=== PATIENT | female | born 1990 | race Caucasian/White ===

== ENCOUNTER → 2021-10-13 | Outpatient (CLI) | payer BC, OTHER ==
[~2021-10-13] MED LIST: AMPH1TAB2; LEXA1TAB2; MINO100C4
== END ==
LOC: M LABSMTC 11:12
PROVIDERS: ATTEND Anesthesiology
DX: Z01.818 Encounter for other preprocedural examination (principal); Z11.52 Encounter for screening for COVID-19

== ENCOUNTER 2021-10-18 08:37 | Observation (INO) | payer BC, OTHER ==
[2021-10-18] VITALS (7 sets, daily range): BP systolic 93–116; BP diastolic 60–77
[~2021-10-18] VITALS: Ht 170.2 cm; Wt 63.5 kg
[~2021-10-18 08:37] MED LIST changes: +LIDOCAINE 1% MDV 20ML VIAL SQ PRN; +LR 1,000 ML IV ONE; +ceFAZolin SOD 2 GM in IV 1 EA IV ONE
[2021-10-18] MEDS ORDERED: ROCURONIUM BROMIDE 50 MG/5 ML VIAL As Ordered ONE ×2 (09:35→12:44)
[2021-10-18] MEDS ORDERED: dexameTHASONE 4 MG/ML 1ML VIAL (J1100 PER 1MG) As Ordered ONE (09:35)
[2021-10-18] MEDS ORDERED: ONDANSETRON 4MG/2ML VIAL As Ordered ONE (09:35)
[2021-10-18] MEDS ORDERED: fentaNYL 250 MCG/5 ML INJECTION As Ordered ONE (09:35)
[2021-10-18] MEDS ORDERED: LIDOCAINE 2% 100MG/5ML SDV (FOR ANES.) As Ordered ONE (09:35)
[2021-10-18] MEDS ORDERED: propofoL 200 MG/20 ML VIAL As Ordered ONE (09:35)
[2021-10-18] MEDS ORDERED: MIDAZOLAM INJ 2MG/2ML VIAL (J2250 PER 1MG) As Ordered ONE (09:36)
[2021-10-18] MEDS ORDERED: SCOPOLAMINE 1MG TRANSDERMAL PATCH TOP ONE (10:25)
[2021-10-18] MEDS ORDERED: GENTAMICIN SULF 80MG/2ML VIAL As Ordered ONE (11:41)
[2021-10-18] MEDS ORDERED: BUPIVACAINE LIPOSOME/PF 1.3% 20ML VIAL (13.3MG/ML)(EXPAREL) As Ordered ONE (11:41)
[2021-10-18] MEDS ORDERED: PHENYLephrine 500MCG 5ML (100MCG/ML) SYRINGE As Ordered ONE (12:12)
[2021-10-18] MEDS ORDERED: ePHEDrine SULFATE 25 MG/5 ML(5MG/ML) SYRINGE As Ordered ONE (12:28)
[2021-10-18] MEDS ORDERED: ACETAMINOPHEN 1000MG 100ML IV BTL (OFIRMEV) (J0131 PER 10MG) As Ordered ONE (13:24)
[2021-10-18] MEDS ORDERED: HYDROmorphone HCL 2MG/ML 1ML VIAL As Ordered ONE (13:29)
[2021-10-18] MEDS ORDERED: SUGAMMADEX SODIUM 500 MG/5 ML VIAL (BRIDION) As Ordered ONE (13:29)
[2021-10-18] MEDS ORDERED: METOCLOPRAMIDE INJ 10MG/2ML VIAL (J2765 PER 1) As Ordered ONE (14:11)
[2021-10-18] MEDS ORDERED: ONDANSETRON 4MG/2ML VIAL IV PRN ×2 (15:30→15:45)
[2021-10-18] MEDS ORDERED: LR 1,000 ML IV SCH ×2 (15:30→15:45)
[2021-10-18] MEDS ORDERED: MORPHINE 4 MG/ML 1ML VIAL/SYRINGE IV PRN (15:30)
[2021-10-18] MEDS ORDERED: ACETAMINOPHEN TAB 650MG DOSE (2X325MG) PO PRN (15:30)
[2021-10-18] MEDS ORDERED: fentaNYL 100 MCG/2 ML INJECTION IV PRN (15:45)
[2021-10-18] MEDS ORDERED: oxyCODONE 5MG TAB PO PRN (15:45)
[2021-10-18] MEDS: PERCOCET 5MG/325MG TAB PO PRN (20:38)
[2021-10-19 03:00] VITALS: BP 91/59
[2021-10-19 06:00] VITALS: BP 91/59
[2021-10-19] MEDS: PERCOCET 5MG/325MG TAB PO PRN ×2 (08:56→14:11)
[2021-10-19] MEDS ORDERED: PERCOCET PO (12:56)
[2021-10-19] MEDS ORDERED: OXYC1TAB23 PO (15:45)
== END 2021-10-19 14:00 | disposition home or self-care (01) ==
LOC: M SDC 08:37 → M MS5PR 08:38 → EDUNIT# 11:45 → M MS5PR 16:55
PROVIDERS: ADMIT Plastic Surgery Surgery of the Hand; ATTEND Plastic Surgery Surgery of the Hand
DX: M54.07 Panniculitis affecting regions of neck and back, lumbosacral region (principal); M62.08 Separation of muscle (nontraumatic), other site; Z98.84 Bariatric surgery status; F41.9 Anxiety disorder, unspecified; Z88.8 Allergy status to other drugs, medicaments and biological substances; Z79.899 Other long term (current) drug therapy; Z79.2 Long term (current) use of antibiotics
CPT/HCPCS: 15830; 15847; 88300; C9290; J0131; J0690; J1100; J1170; J1580; J2250; J2370; J2405; J2765; J3010